=== PATIENT | female | born 1980 | race Caucasian/White ===

== ENCOUNTER 2021-11-23 10:02 | Emergency (ER) | payer OTHER, SELFPAY ==
--- NOTE | ~2021-11-23 | XR_ITS ---
CORRECTED REPORT ORDER CHANGE TITLE CHANGE 11/23/21 PK EXAMINATION: XR foot LT MIN. 3 VIEW DATE: 11/23/2021 10:51 INDICATION: Bruising at the dorsum of the foot in the region of the second and third metatarsals post fall 2 days prior. TECHNIQUE: Dorsoplantar, two oblique and lateral views of the left foot were obtained. COMPARISON: None. FINDINGS: Bone alignment is normal. No fracture. Joint spaces are normal. Multi partite first metatarsal fibular sesamoid. IMPRESSION: 1. No acute osseous abnormality. Reviewed, dictated and finalized at location A. IAT ANDRADE
[2021-11-23 10:35] VITALS: BP 97/68; PULSE 79; RESP 20; TEMP 37.5; O2SAT 100
--- NOTE | 2021-11-23 11:03 | ED.LOWEXIN ---
HPI - Extremity Injury (Lower) General Chief Complaint: Extremity Injury, Lower Stated Complaint: Left foot pain Time Seen by Provider: 11/23/21 11:03 Source: patient Mode of arrival: ambulatory Limitations: no limitations History of Present Illness HPI Narrative: 41 y/o female presented for c/o left foot pain for 2 days. Denies injury, states she stepped out of a high truck the same day of pain onset, but denies pain at that time. States she noticed pain in the evening, then developed redness and swelling to the 2nd and 3rd MTP joints of the left foot the next day. Has applied ice and is taking ibuprofen for the pain. She is able to bear weight but endorses more pain with walking. She denies numbness, tingling, weakness of the foot. Related Data Allergies Allergy/AdvReac Type Severity Reaction Status Date / Time No Known Allergies Allergy Verified 11/23/21 10:40 Review of Systems Review of Systems: CONSTITUTIONAL: Denies body aches, fever, chills EYES: Denies visual changes ENT: Denies rhinorrhea, congestion CARDIOVASCULAR: Denies chest pain, palpitations, or edema. RESPIRATORY: Denies cough or dyspnea. GASTROINTESTINAL: Denies abdominal pain, nausea, vomiting, or diarrhea. SKIN: Denies rash, itching, or wounds. MUSCULOSKELETAL: Reports left foot pain NEUROLOGIC: Denies headache, numbness, tingling, or weakness. PSYCH: Denies depression or anxiety. All systems reviewed & are unremarkable except as noted in HPI and below PMFSH Past Medical History Medical History BMI 31.0-31.9,adult BMI 32.0-32.9,adult Family History Family History Mother No problems noted. Sibling No problems noted. Social History Social History Smoking status: Never smoker Second hand tobacco smoke exposure: No Alcohol intake: current Substance use: never Substance use type: does not use Additional occupation/education comments: stay at home mom Gender identity (if verbalized by the patient): Female Comments At time of signature, I have reviewed and agree with nursing past medical, surgical, social and family history unless otherwise noted. Please see nursing chart for further information. There is no relevant family history pertinent to the presenting complaint Exam Narrative: GENERAL: Well-appearing CHEST: Speaks in full sentences. No respiratory distress. HEART: Regular rate and rhythm. Normal and equal peripheral pulses. EXTREMITIES: Left foot dorsal surface with approximately 2 cm diameter red swollen area between second and third toes over the MTP joint, tender with palpation. Normal sensation, limited range of motion to toes. No open wounds or obvious deformity; pulse palpable and equal bilaterally, skin warm, dry, pink. Capillary refill less than 3 seconds. Ambulates with a limp. SKIN: Warm, dry, no rash. NEURO: Alert and oriented x3. PSYCH: Normal mood and affect Course Course Emergency Course: Patient is aware of diagnosis, understands and agrees to treatment plan. Anticipatory guidance given. Patient agrees to follow-up as directed and is aware of reasons to seek care at the emergency department. Portions of this record may have been created with voice recognition software Level of Care: Express Care Visit Vital Signs Vital signs: Vital Signs Temperature 99.5 F 11/23/21 10:35 Pulse Rate 79 11/23/21 10:35 Respiratory Rate 20 11/23/21 10:35 Blood Pressure 97/68 L 11/23/21 10:35 Pulse Oximetry 100 11/23/21 10:35 Oxygen Delivery Room Air 11/23/21 10:35 Temperature 99.5 F 11/23/21 10:35 Pulse Rate 79 11/23/21 10:35 Respiratory Rate 20 11/23/21 10:35 Blood Pressure 97/68 L 11/23/21 10:35 Pulse Oximetry 100 11/23/21 10:35 Oxygen Delivery Room Air 11/23/21 10:35 Reviewed MDM - Ex
== END 2021-11-23 11:20 | disposition home or self-care (01) ==
PROVIDERS: Emergency Provider Nurse Practitioner Family; PCP Family Medicine
DX: S93.505A Unspecified sprain of left lesser toe(s), initial encounter (principal); X58.XXXA Exposure to other specified factors, initial encounter; E03.9 Hypothyroidism, unspecified; F41.9 Anxiety disorder, unspecified
CPT/HCPCS: 73630; 99213; G0463

== ENCOUNTER 2024-05-09 09:18 | Outpatient (CLI) | payer OTHER, SELFPAY ==
--- NOTE | ~2024-05-09 | XR_ITS ---
EXAMINATION: XR lumbar spine min 4V DATE: 05/09/2024 09:46 INDICATION: Unspecified injury of lower back, initial encounter. TECHNIQUE: 5 views of lumbar spine were obtained. COMPARISON: None. FINDINGS: There is 4 degrees levocurvature of lumbar spine. Vertebral body heights are normal. There are endplate osteophytes at multiple levels. Intervertebral disc heights are normal. There is multile jakob facet joint osteoarthritis, moderate bilaterally at L4-L5 and L5-S1. IMPRESSION: 1. Mild lumbar spondylosis. Reviewed, dictated and finalized at location A. [employer] IMPRESSION: 1. Mild lumbar spondylosis.
== END 2024-05-09 09:19 | disposition home or self-care (01) ==
PROVIDERS: PCP Family Medicine; Visit Provider Nurse Practitioner Family
DX: M54.32 Sciatica, left side (principal); M43.06 Spondylolysis, lumbar region; V89.2XXA Person injured in unspecified motor-vehicle accident, traffic, initial encounter
CPT/HCPCS: 72110

== ENCOUNTER 2024-06-07 08:00 | Outpatient (RCR) | payer OTHER, SELFPAY ==
--- NOTE | 2024-05-31 16:52 | OPREHPOC ---
Outpatient Therapy Plan of Care This is a Multidisciplinary Plan of Care that may contain components documented by all disciplines (PT, OT, and ST.) PT Problem 1 PT Problem #1 Knowledge Deficit PT Goal 1 Goal / Goal Update [place] with HEP Target Visit 4 PT Goal 2 Goal / Goal Update Report pain no greater than 1/10 for 2 consecutive weeks Target Visit 6 PT Problem 2 PT Problem #2 Impaired Strength PT Goal 1 Goal / Goal Update 1. Improve left hip abduction strength to 4+/5 to improve lateral stability with gait and ADLs 2. Improve left hip flexion to 5/5 to improve foot clearence Target Visit 6 PT Problem 3 PT Problem #3 Impaired Functional Mobility PT Goal 1 Goal / Goal Update Demonstrate ability to perform proper hip hinge without low back pain Target Visit 6
--- NOTE | 2024-05-31 16:52 | PTOPEVAL1 ---
Assessment and note entered by Raúl Asher, PT Evaluation Information Assessment Status Evaluation Diagnosis Sciatica left side Onset April 2024 Subjective Information Reports that she has trouble when sitting and then initiates walking. 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 She mostly has pin in the low back and in her hip. She feels she does not have the range in her hip right now. She is able to sleep well and is able to move fairly well in the morning. Had an x-ray and no indicitive trauma noted to bone. Feels tightness in her back. 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 Weakness and loss of ROM noted in left hip. Will benefit form skilled therapy to address these deficits and promote proper body mechanics. Plan of Care Interventions Gait Training,Manual Therapy,Neuro Re-education, Therapeutic Activities,Therapeutic Exercise PT Services Indicated Yes Treatment Frequency and 1-2x/week for 6 visits Duration These treatments will address the objective and functional deficits as defined above. The patient will be advanced safely and appropriately in order for the patient to progress towards his/her prior level of function. Additional exercises will be introduced and as well as a comprehensive home exercise program upon discharge, if needed, ?to ensure carryover of functional gains achieved in the clinic. This treatment plan has been reviewed and agreement upon by the patient.
--- NOTE | 2024-06-14 11:45 | PCPTNOTE ---
Patient called and cancelled due to illness.
--- NOTE | 2024-06-28 16:10 | PCPTNOTE ---
Patient canceled appointment this week. Patient rescheduled to 07/03/24.
--- NOTE | 2024-07-03 08:33 | PCPTNOTE ---
Patient no showed to appointment this date. Called and left vociemail.
--- NOTE | 2024-07-23 10:45 | PTOPDC ---
Assessment and note entered by Raúl Asher, PT Evaluation Information Assessment Status Discharge - Pt Not Present Diagnosis Sciatica left side Onset April 2024 Subjective Information Reports that she has trouble when sitting and then initiates walking. 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 She mostly has pain in the low back and in her hip. She feels she does not have the range in her hip right now. She is able to sleep well and is able to move fairly well in the morning. Had an x-ray and no indicative trauma noted to bone. Feels tightness in her back. Assessment PT Clinical Summary Patient was a No Show No Call for todays Progress note. Patient has has 3+ No show or cancels and will be discharged at this time due to lack of presence and communication with clinic. Please refer to last treatment note for discharge status. Plan of Care PT Services Indicated Yes
== END 2024-07-25 09:15 | disposition home or self-care (01) ==
LOC: ANHGOSHPT 08:00
PROVIDERS: PCP Family Medicine; Visit Provider Nurse Practitioner Family
DX: M54.32 Sciatica, left side (principal); S39.92XA Unspecified injury of lower back, initial encounter
CPT/HCPCS: 97110; 97161